=== PATIENT | female | born 1985 | race Caucasian/White ===

== ENCOUNTER 2021-02-21 14:46 | Emergency (ER) | payer MEDICAID ==
[~2021-02-21] VITALS: Ht 172.7 cm; Wt 63.5 kg
[2021-02-21 14:58] VITALS: BP_SYST 126
[2021-02-21] MEDS ORDERED: KETOROLAC TROMETHAMINE 60 MG/2 ML VIAL IM ONE (15:00)
--- NOTE | 2021-02-21 15:00 | NUR ---
pt. brought in by grandparents, placed in bed 3, with c/o pain to Right foot and ankle, rates the pain 5/10 when at rest and 10/[address] weight on it. fell 2 days ago off an elevated speaker and the pain has not improved, swollen no bruising or lacerations, tendwer to touch.
--- NOTE | 2021-02-21 15:00 | NUR ---
Patient to ER bed 3 to gown for evaluation. Side rails up. Report given to Lesia HICKEY.
--- NOTE | 2021-02-21 15:09 | NUR ---
ER at bedside examining patient.
--- NOTE | 2021-02-21 15:12 | NUR ---
radiology here at bedside for xray
--- NOTE | 2021-02-21 15:17 | NUR ---
toradol given for pain
--- NOTE | 2021-02-21 16:10 | NUR ---
Ortho shoe placed on by Syed SOLOMON, and crutches given with use of instructions.
[2021-02-21] MEDS ORDERED: HYDR-3917 PO (16:48)
[2021-02-21] MEDS ORDERED: IBUP-1969 PO (16:48)
[2021-02-21 16:56] VITALS: BP_SYST 98
--- NOTE | 2021-02-21 16:57 | NUR ---
Patient given written and verbal discharge instructions and verbalizes understanding. Dr. Alberto discussed with patient the results and treatment provided. Patient in stable condition. ID arm band removed. Rx of [place] and Ibuprofen given. Patient educated on pain management and to follow up with PMD. Pain Scale 2. Opportunity for questions provided and answered. Medication side effect fact sheet provided.
== END 2021-02-21 16:56 | disposition home or self-care (01) ==
LOC: SED 14:46
DX: S92.211A Displaced fracture of cuboid bone of right foot, initial encounter for closed fracture (principal); W18.39XA Other fall on same level, initial encounter; Y93.42 Activity, yoga; Y92.89 Other specified places as the place of occurrence of the external cause; Y99.8 Other external cause status
CPT/HCPCS: 73610; 73630; 81025; 96372; 99284; J1885

== ENCOUNTER 2022-02-08 20:01 | Emergency (ER) | payer SELFPAY ==
[~2022-02-08] VITALS: Ht 172.7 cm; Wt 68.0 kg
[~2022-02-08 20:01] MED LIST: HYDR-3917 PO; IBUP-1969 PO
--- NOTE | 2022-02-08 20:05 | NUR ---
Pt brought by mother, A&Ox4, pt presents to ER with mouse bite on L index last night, no bleeding noted, afebrile, skin pink and warm, cap refill <3.
[2022-02-08 20:12] VITALS: BP_SYST 116
[2022-02-08] MEDS ORDERED: cefTRIAXone 1 GM in LIDOCAINE 1%, 20 ML MDV 2.1 ML IM ONE (21:00)
[2022-02-08] MEDS ORDERED: DIPH-TET-PERTUS Vaccine 0.5 ML VIAL (ADACEL) I.M. ONE (21:00)
--- NOTE | 2022-02-08 22:20 | NUR ---
Dr Guo evaluating patient at bedside
[2022-02-08] MEDS ORDERED: CEPH-548 PO (22:26)
[2022-02-08 22:30] VITALS: BP_SYST 116
--- NOTE | 2022-02-08 22:31 | NUR ---
Patient given written and verbal discharge instructions and verbalizes understanding. ER MD discussed with patient the results and treatment provided. Patient in stable condition. ID arm band removed. Rx of Cephalexin given. Patient educated on pain management and to follow up with PMD. Pain Scale 2/10. Opportunity for questions provided and answered. Medication side effect fact sheet provided.
== END 2022-02-08 22:31 | disposition home or self-care (01) ==
LOC: SED 20:01
DX: S61.217A Laceration without foreign body of left little finger without damage to nail, initial encounter (principal); S61.251A Open bite of left index finger without damage to nail, initial encounter; W53.01XA Bitten by mouse, initial encounter; Y93.89 Activity, other specified; Y92.89 Other specified places as the place of occurrence of the external cause; Y99.8 Other external cause status
CPT/HCPCS: 90471; 90715; 96372; 99284; J0696; J2001